=== PATIENT | female | born 1985 | race Caucasian/White ===

== ENCOUNTER → 2020-11-28 15:11 | Outpatient (CLI) | payer BC, SELFPAY ==
--- NOTE | 2020-11-28 15:17 | XR_ITS ---
PROCEDURE: XR KUB CLINICAL INDICATION: LT FLANK pAIN, CALCULUS OF LT KIDNEY COMPARISON: CR KUB KUB (SINGLE VIEW) from 08/31/2015 FINDINGS: No obvious renal calculi. There are numerous bilateral pelvic calcifications. These could be vascular. Many of these could even be due to ureteral calculi. Please correlate with patient's clinical parameters. IMPRESSION: Nonspecific pelvic calcifications. Dictated by: Valeriano Moore MD 11/28/2020 16:16 Valeriano Moore MD in [facility] 11/28/2020 16:16
== END ==
PROVIDERS: PCP Nurse Practitioner Family; Visit Provider Nurse Practitioner Family
DX: R10.9 Unspecified abdominal pain (principal); N20.0 Calculus of kidney
CPT/HCPCS: 74018

== ENCOUNTER 2022-01-06 08:18 | Emergency (ER) | payer BC, SELFPAY ==
[2022-01-06 08:19] VITALS: BP 139/73; PULSE 85; RESP 20; TEMP 36.8; O2SAT 100; BMI 35.7
--- NOTE | 2022-01-06 08:23 | PC.NURSE ---
Pt produced Urine ambulated to Restroom well
[2022-01-06 08:30] VITALS: BP 139/74; PULSE 92; RESP 18; O2SAT 100
--- NOTE | 2022-01-06 08:33 | PC.NURSE ---
DR. WOLF AT BEDSIDE FOR EVALUATION
--- NOTE | 2022-01-06 08:34 | CT_ITS ---
PROCEDURE INFORMATION: Exam: CT Abdomen And Pelvis Without Contrast Exam date and time: 01/06/2022 8:47 AM Age: 36 years old Clinical indication: Abdominal pain; Flank; Right; Additional info: Right flank pain TECHNIQUE: Imaging protocol: Computed tomography of the abdomen and pelvis without contrast. Radiation optimization: All CT scans at this facility use at least one of these dose optimization techniques: automated exposure control; mA and/or kV adjustment per patient size (includes targeted exams where dose is matched to clinical indication); or iterative reconstruction. COMPARISON: CR XR KUB 11/28/2020 3:18 PM FINDINGS: Lungs: Minimal dependent changes are present in the lung bases. Liver: Normal. No mass. Gallbladder and bile ducts: Normal. No calcified stones. No ductal dilation. Pancreas: Normal. No ductal dilation. Spleen: The spleen is mildly prominent. Adrenal glands: Normal. No mass. Kidneys and ureters: [id number] right perinephric stranding and hydronephrosis secondary to a 3.5 mm calculus located at the right ureterovesical junction. Stomach and bowel: Unremarkable. No obstruction. No mucosal thickening. Appendix: No evidence of appendicitis. Intraperitoneal space: Unremarkable. No free air. No significant fluid collection. Vasculature: Unremarkable. No abdominal aortic aneurysm. Lymph nodes: Calcified right hilar node compatible with healed granulomatous disease. Urinary bladder: Unremarkable as visualized. Reproductive: Unremarkable as visualized. Bones/joints: Unremarkable. No acute fracture. Soft tissues: Unremarkable. IMPRESSION: 1. [id number] right perinephric stranding and hydronephrosis secondary to a 3.5 mm calculus located at the right ureterovesical junction. 2. Remainder of findings as described.
--- NOTE | 2022-01-06 08:39 | HMH.EDGENADL ---
Discharge Plan Disposition Patient Disposition: Home, Self-Care Condition: Good Prescriptions Prescriptions: New oxycodone-acetaminophen [Percocet] 5-325 mg tablet 1 tab PO Q6H PRN (Reason: pain) Qty: 10 0RF ondansetron 4 mg tablet,disintegrating 4 mg PO Q8H PRN (Reason: nausea and vomiting) Qty: 10 0RF tamsulosin [Flomax] 0.4 mg capsule 0.4 mg PO HS Qty: 10 0RF ketorolac 10 mg tablet 10 mg PO Q6H PRN (Reason: pain) Qty: 10 0RF Referrals Follow up/Referrals: Kailyn Jacinto MD [Primary Care Provider] - See instructions Activity Restrictions/Add. Instructions Additional Instructions/Restrictions: Flomax as prescribed. Toradol and Percocet as needed for pain. Zofran as needed for nausea. Additional instructions for KIDNEY STONE (URETERAL CALCULUS): See your primary care provider as soon as possible for further evaluation. Drink plenty of fluids. Strain your urine and save any stones you catch. Return immediately if you develop a fever or have uncontrollable vomiting or uncontrollable pain. Additional instructions for CONTROLLED SUBSTANCES: You have been prescribed a medication that is a controlled substance. Controlled substances include pain medications known as opiates and sedative nerve medications known as benzodiazepines. Tramadol, fioricet, and gabapentin are also controlled substances. Some common opiates include: Codeine (such as Tylenol #3) Hydrocodone (Vicodin, Lortab, Lorcet, Whitney) Oxycodone (Percocet, Percodan, Oxycodone, Oxy IR) Some common benzodiazepines include: Diazepam (Valium) Lorazepam (Ativan) Alprazolam (Xanax) Clonazepam (Klonopin) Oxazepam (Serax) All of these controlled substances are highly addictive and frequently abused. Misuse can and frequently does lead to addiction as well as overdose and . Medication should be stored in a locked cabinet or other secure storage unit. Do not store the medication in a motor vehicle. Short term supplies, 3 days or less, are prescribed because of the highly addictive nature of the medication. Any of the controlled substance medication NOT taken should be disposed of properly and NOT SAVED. The recommended method of disposing of unused medications is: Place the medicines in a sealable plastic bag. If the medicine is a solid, crush it or add water to dissolve it. Add something undesirable (cat litter, coffee grounds, etc.) Dispose of sealed bag in household trash Do not flush or pour unused medicines down a sink or drain. Controlled substances should not be shared, given away or sold. Because of the addictive nature and frequent abuse, these medications are sometimes stolen. These medications should be kept in a safe place where they cannot be stolen. Do not keep them in your car or purse. Lost or stolen prescriptions for controlled substances WILL NOT BE REFILLED in this emergency department, regardless of whether a police report was filed. Clinical Impressions Clinical Impression: Right ureteral calculus Instructions Patient Instructions: DI for Kidney Stones Discharge ED Provider: Richard Lucero General Adult HPI General Chief complaint: Back Pain/Injury Stated complaint: right side pain Time Seen by Provider: 01/06/22 08:32 Mode of Arrival: Ambulatory Source of Information: Patient Limitations: No Limitations Description of Symptoms (Recalled from ER Triage Doc. by RN): PT WITH RIGHT SIDE FLANK AND GROIN PAIN SINCE ABOUT 0400. HX OF KIDNEY STONE History of Present Illness HPI narrative: Complains of right flank pain radiating into her right inguinal area since about 4 AM. Associated with vomiting. Difficulty with urinary stream. No fever. Prior history of a kidney stone in the past which she did pass without intervention. She says current pain feels like she is passing another kidney stone. Related Data Previous Rx's Medication Instructions Recorded ketorolac 10 mg tablet 10 mg
[2022-01-06 08:42] LABS: Microscopic, Urine URINE MICROSCOPIC (MICROSCOPIC)
[2022-01-06 08:44] LABS: Appearance,Urine CLEAR (Clear); Bilirubin,Urine Negative (Negative); Blood, Urine 3+ (Negative); Color,Urine YELLOW (Yellow); Glucose,Urine (UA) Negative (Negative); Ketones,Urine TRACE (Negative); Leukocyte Esterase,Urine Negative (Negative); Nitrate,Urine Negative (Negative); PH,Urine 6.5 (5.0-8.5); Protein,Urine 2+ (Negative); Specific Gravity, Urine 1.025 (1.005-1.030); Urobilinogen,Urine 0.2 EU/dl (0.2)
[2022-01-06 08:46] LABS: Urine Pregnancy, HCG Qual. Negative (Negative)
[2022-01-06 08:49] LABS: Chloride 98 mmol/L (98-107); Sodium 140 mmol/L (136-145)
[2022-01-06 08:50] LABS: Potassium 3.5 mmoL/L (3.5-5.1)
--- NOTE | 2022-01-06 08:50 | PC.NURSE ---
PT TO CT AT THIS TIME PER WC
[2022-01-06 08:52] LABS: Alanine Aminotransferase 32 U/L (12-78); Albumin Level 4.7 g/dl (3.5-5.0); Albumin/Globulin Ratio 1.4 (1.1-1.8); Alkaline Phosphatase 88 U/L (38-126); Anion Gap 17.5 mEq/L (5-15); Aspartate Amino Transferase 33 U/L (14-36); Bilirubin,Total 0.2 mg/dl (0.2-1.3); Blood Urea Nitrogen 21 mg/dl (7-17); Calcium 8.8 mg/dl (8.4-10.2); Carbon Dioxide 28 mmol/L (22.0-30.0); Creatinine Clearance Estimated 168 mL/min (50-200); Estimated Glomerular Filt Rate 94 ml/min (>60); GFR (African American) 113 ML/MIN (>60); Globulin 3.3 g/dL (1.3-3.2); Glucose 168 mg/dl (74-100)
--- NOTE | 2022-01-06 08:57 | PC.NURSE ---
PT RETURNED FROM CT AT THIS TIME
[2022-01-06 09:01] VITALS: BP 116/57; PULSE 102; RESP 18; O2SAT 99
[2022-01-06 09:02] LABS: Bacteria,Urine 1+ /lpf; Mucus,Urine 2+ /lpf; RBC,Urine 50-100 #/hpf (0-3)
[2022-01-06 09:03] LABS: WBC,Urine Occasional #/hpf (0-3)
[2022-01-06 09:17] LABS: Basophils # 0.1 K/mm3 (0-0.2); Basophils % 0.6 % (0.1-2.0); Eosinophils % 0.1 % (0.1-12.0); Hematocrit 43.2 % (37.0-47.0); Hemoglobin 13.9 g/dL (12.2-16.2); Lymphocytes # 1.8 K/mm3 (0.7-4.5); Lymphocytes % 13.4 % (10-50); Mean Corpuscular HGB Conc 32.2 g/dL (31.8-35.4); Mean Corpuscular Hemoglobin 28.1 pg (27.0-31.2); Mean Corpuscular Volume 87.2 fl (81-99); Mean Platelet Volume 8.9 fl (7.4-10.4); Monocytes # 0.3 K/mm3 (0.1-1.0); Monocytes % 2.6 % (1.7-9.3); Neutrophils % 83.3 % (37.0-80.0); Platelet Count 364 K/mm3 (142-424); Red Blood Count 4.95 M/mm3 (4.20-5.40); Red Cell Distribution Width 12.8 % (11.5-17.5); White Blood Count 13.2 K/mm3 (4.8-10.8)
--- NOTE | 2022-01-06 09:45 | PC.NURSE ---
PT MEDICATED AT THIS TIME PER EMAR. AT BEDSIDE. CALL LIGHT WITHIN REACH. NO FURTHER NEEDS AT THIS TIME
--- NOTE | 2022-01-06 09:51 | PC.NURSE ---
DR. WOLF AT BEDSIDE TO REEVALUATE PT AND DISCUSS POC
[2022-01-06 10:10] VITALS: BP 115/72; PULSE 89; RESP 17; TEMP 36.8; O2SAT 99
== END 2022-01-06 10:15 | disposition home or self-care (01) ==
PROVIDERS: Emergency Provider Emergency Medicine; PCP Family Medicine
DX: R10.31 Right lower quadrant pain (principal); M54.9 Dorsalgia, unspecified; R11.2 Nausea with vomiting, unspecified; R39.198 Other difficulties with micturition; Z79.1 Long term (current) use of non-steroidal anti-inflammatories (NSAID); Z79.899 Other long term (current) drug therapy; Z87.442 Personal history of urinary calculi
CPT/HCPCS: 74176; 80053; 81001; 81025; 85025; 96361; 96374; 96375; 99285; J2405